=== PATIENT | female | born 1965 | race Caucasian/White ===

== ENCOUNTER 2020-11-05 06:32 | Emergency (ER) | payer SELFPAY ==
[~2020-11-05] VITALS: Ht 165.1 cm; Wt 64.7 kg
--- NOTE | 2020-11-05 06:52 | NUR ---
Patient presents to ER c/o vomiting, diarrhea, and anuria since Monday. Patient states she has an abd hx of either ulcerative colitis or diverticulitis (she states two different doctors told her different things) x4 years ago. Patient states this feels the similar; not as much abd discomfort as before. Patient is in NAD. Respirations even and unlabored.
--- NOTE | 2020-11-05 06:58 | NUR ---
Report given to JOSIAH Teran. Patient care transferred.
[2020-11-05] MEDS ORDERED: ONDANSETRON 2MG/ML, 2ML IVPush ONE (07:00)
[2020-11-05] MEDS ORDERED: SODIUM CHLORIDE FLUSH 10ML SYR IVF ONE (07:00)
[2020-11-05] MEDS ORDERED: SODIUM CHLORIDE 0.9% 1,000ML IVBOLUS ONE (07:00)
--- NOTE | 2020-11-05 07:00 | NUR ---
Recieved report from Callie RAHMAN
--- NOTE | 2020-11-05 07:30 | NUR ---
IV placed and blood draw preformed by advanced EMT w/ RN supervision
--- NOTE | 2020-11-05 07:42 | NUR ---
Pt ambulatory with steady gait to restroom, pt made aware of need for urine sample but states "I tried and nothing came out".
[2020-11-05 07:56] LABS: BASOPHILS % (AUTO) 1 % (0-1); EOSINOPHILS % (AUTO) 0 % (1-7); LYMPHOCYTES % (AUTO) 18 % (22-44); MD NO; MEAN CORPUSCULAR HEMOGLOBIN 33.6 pg (27.0-34.8); MEAN CORPUSCULAR HGB CONC 34.1 g/dL (32.4-35.8); MEAN PLATELET VOLUME 8.9 fL (7.4-10.4); MONOCYTES % (AUTO) 12 % (2-9); NEUTROPHILS % (AUTO) 68 % (42-75); PLATELET COUNT 228 x10^3/uL (130-400); RED BLOOD COUNT 5.33 x10^6/uL (3.82-5.3); RED CELL DISTRIBUTION WIDTH 13.9 % (9.6-15.2)
[2020-11-05] MEDS ORDERED: ONDANSETRON 2MG/ML, 2ML ONE (07:57)
--- NOTE | 2020-11-05 07:59 | NUR ---
Pt medicated per SEP, no other requests at this time
[2020-11-05 08:09] LABS: ALANINE AMINOTRANSFERASE 37 U/L (12-78); ALBUMIN 4.4 g/dL (3.4-5.0); ANION GAP 11 mmol/L (5-15); CALCIUM 9.6 mg/dL (8.5-10.1); CHLORIDE 101 mmol/L (98-107)
[2020-11-05 08:13] LABS: ALKALINE PHOSPHATASE 127 U/L (45-117); BILIRUBIN,TOTAL 1.7 mg/dL (0.2-1.0); TOTAL PROTEIN 7.9 g/dL (6.4-8.2)
[2020-11-05] MEDS ORDERED: POTASSIUM CHLORIDE 20 MEQ TAB.ER.PRT PO ONE (08:30)
[2020-11-05] MEDS ORDERED: POTASSIUM CHLORIDE 20 MEQ TAB.ER.PRT ONE (08:39)
--- NOTE | 2020-11-05 08:39 | NUR ---
stool collected and walked to lab
--- NOTE | 2020-11-05 09:03 | NUR ---
Pt provided bedside comode
[2020-11-05] MEDS ORDERED: ONDA4TAB7 PO (09:18)
[2020-11-05] MEDS ORDERED: PANT40TA3 PO (09:18)
[2020-11-05 09:40] LABS: MICROSCOPIC INDICATED
[2020-11-05 10:07] LABS: CLOSTRIDIUM DIFFICILE ANTIGEN NEGATIVE; CLOSTRIDIUM DIFFICILE TOXIN NEGATIVE (Negative)
[2020-11-05 10:08] LABS: CRYPTOSPORIDIUM ANTIGEN Negative (Negative)
[2020-11-05 11:08] VITALS: BP 124/74
== END 2020-11-05 11:10 | disposition home or self-care (01) ==
LOC: ED 07:54
DX: E86.0 Dehydration (principal); R11.2 Nausea with vomiting, unspecified; R19.7 Diarrhea, unspecified; Z98.51 Tubal ligation status
CPT/HCPCS: 36415; 80053; 81001; 83690; 84703; 85025; 87046; 87086; 87324; 87328; 87329; 87427; 89055; 96361; 96374; 99285; J2405; J7030